=== PATIENT | female | born 1990 | race Caucasian/White ===

== ENCOUNTER 2021-12-29 11:11 | Emergency (ER) | payer MEDICAID ==
[~2021-12-29] VITALS: Ht 182.9 cm; Wt 108.9 kg
[2021-12-29 11:16] VITALS: BP 111/76
--- NOTE | 2021-12-29 11:24 | NUR ---
BRIAN. HANDED ON URINE CUP.
--- NOTE | 2021-12-29 12:27 | NUR ---
PT WALKED TO BED STEADY GAIT
--- NOTE | 2021-12-29 12:30 | NUR ---
in [facility] bibs for left flank pain 5/10, foul smelling cloudy urine. denies hematura, dysuria. no fever, chills, n,v. aao x4. resp even and nonlabored. vss. ambulatory
[2021-12-29 12:38] LABS: APPEARANCE,URINE CLEAR (CLEAR); BILIRUBIN,URINE NEGATIVE (NEGATIVE); BLOOD, URINE TRACE-L (NEGATIVE); COLOR,URINE YELLOW (YELLOW); LEUKOCYTE ESTERASE ,URINE NEGATIVE (NEGATIVE); NITRITE, URINE NEGATIVE (NEGATIVE); PH,URINE 6.5 (5.0-9.0); UGLUCOSE NEGATIVE (NEGATIVE)
[2021-12-29 12:49] LABS: RBC,URINE 0-5 /HPF (0-5); YEAST,URINE Few /HPF (None Seen)
[2021-12-29] MEDS ORDERED: CIPR500T4 PO (13:37)
[2021-12-29] MEDS ORDERED: IBUP-2213 PO (13:37)
[2021-12-29 13:40] VITALS: BP 112/74
== END 2021-12-29 13:42 | disposition home or self-care (01) ==
LOC: MED 11:11
DX: N39.0 Urinary tract infection, site not specified (principal)
CPT/HCPCS: 81001; 81025; 87086; 99283